=== PATIENT | male | born 1985 | race Caucasian/White ===

== ENCOUNTER 2023-08-16 03:05 | Emergency (ER) | payer SELFPAY ==
[~2023-08-16] VITALS: Ht 182.8 cm; Wt 77.1 kg
[2023-08-16 05:22] LABS: BILIRUBIN Negative (Negative); BLOOD Negative (Negative); CLARITY Turbid (Clear); COLOR Yellow (Yellow); GLUCOSE Negative (Negative); KETONE Negative (Negative); LEUKO ESTERASE Trace (Negative); NITRITE Negative (Negative); UROBILINOGEN 0.2 E.U./dl (0.0-1.0)
[2023-08-16 05:29] LABS: URINE AMPHETAMINES Positive (1000ng/ml); URINE BARBITURATES Negative (200ng/ml); URINE BENZODIAZEPINES Negative (200ng/ml); URINE CANNABINOIDS (THC) Negative (50ng/ml); URINE COCAINE Negative (300ng/ml); URINE METHADONE Negative (300ng/ml); URINE OPIATES Negative (300ng/ml); URINE PHENCYCLIDINE Negative (25ng/ml)
[2023-08-16 05:38] LABS: BACTERIA 1+
[2023-08-16] MEDS ORDERED: AZITHROMYCIN 250 MG TAB PO ONE (05:55)
== END 2023-08-16 06:54 | disposition home or self-care (01) ==
LOC: ED 03:05
PROVIDERS: Internal Medicine
DX: Z20.2 Contact with and (suspected) exposure to infections with a predominantly sexual mode of transmission (principal); Z20.822 Contact with and (suspected) exposure to COVID-19; F15.129 Other stimulant abuse with intoxication, unspecified; R11.0 Nausea; R63.0 Anorexia; Z68.1 Body mass index [BMI] 19.9 or less, adult; Z79.899 Other long term (current) drug therapy; F17.210 Nicotine dependence, cigarettes, uncomplicated